=== PATIENT | female | born 1995 | race Caucasian/White ===

== ENCOUNTER 2023-08-09 20:23 | Emergency (ER) | payer BC, SELFPAY ==
[2023-08-09 20:26] VITALS: BP 106/64
[2023-08-09 20:41] LABS: % Basophils 0.9 % (0-2); % Eosinophils 0.7 % (0-6); % Immature Granulocytes 0.6 % (0-0.5); % Lymphocytes 57.6 % (20.5-51.1); % Monocytes 5.5 % (1.7-9.3); % Neutrophils 34.7 % (42.2-75.2); Absolute Basophils 0.1 10^3/uL (0-0.2); Absolute Eosinophils 0.1 10^3/uL (0-0.7); Absolute Immature Granulocytes 0.1 10^3/uL (0-0.05); Absolute Lymphocytes 5.1 10^3/uL (1.2-3.4); Absolute Monocytes 0.5 10^3/uL (0.1-0.6); Absolute Neutrophils 3.1 10^3/uL (1.4-6.5); Hematocrit 35.3 % (37.0-47.0); Hemoglobin 12.5 g/dL (12.0-16.0); Mean Corp Hgb Conc. 35.4 g/dL (33.0-37.0); Mean Corpuscular Hgb 31.8 pg (27.0-31.0); Mean Corpuscular Volume 89.8 fL (81.0-99.0); Nucleated Red Blood Cells % 0 %; Platelet Count 172 10^3/uL (130-400); Red Blood Cell Count 3.93 10^6/uL (4.20-5.40); Red Cell Dist. Width 12.6 % (11.5-14.5); White Blood Cell Count 8.8 10^3/uL (4.8-10.8)
[2023-08-09 20:51] LABS: HCG, Serum Qualitative Screen Negative
[2023-08-09 21:12] LABS: ALT (SGPT) 335 U/L (0-35); AST (SGOT) 247 U/L (14-36); Albumin 3.5 g/dl (3.5-5.0); Alkaline Phosphatase 276 U/L (38-126); Blood Urea Nitrogen 7 mg/dl (7-17); Calcium 8.5 mg/dl (8.4-10.2); Carbon Dioxide 27 mmol/L (22-30); Chloride 100 mmol/L (98-107); Glucose 133 mg/dl (70-99); Potassium 3.7 mmol/L (3.5-5.1); Sodium 133 mmol/L (135-145); Total Bilirubin 1.5 mg/dl (0.2-1.3); Total Protein 6.7 g/dl (6.3-8.2); eGFR > 60.00
[2023-08-09 21:19] LABS: Lipase 158 U/L (23-300)
[2023-08-09 23:40] VITALS: BMI 33.3
--- NOTE | 2023-08-10 | ED.GENMED ---
History of Present Illness
General
Chief Complaint: Abdominal Pain
Source: patient
Exam Limitations: none
Time Seen by Provider: 08/09/23 23:11
Travel History
Have you had any contact with someone who has COVID-19?: No
Do you have any symptoms of coronavirus? Fever > 100 degrees, chills, cough, shortness of breath, sore throat, loss of taste or smell, muscle aches, or headache?: No
History of Present Illness
History of Present Illness:
this is a 27yo female who presents with nausea, and fevers. also has had some vomiting. sx's started about 1.5 weeks ago. she did have a little bit of a sore throat but its gone after ibuprofen. no diarrhea. no abdominal pain. No chest pain. No
cough. The patient does mention that her boyfriend recently came to the from [facility]. She states he is not sick. She is vaccinated. She states her boyfriend is not vaccinated against 'anything'. No rash, no neck pain, no neck stiffness
Past History
Past History
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
ED Past Surgical History: None
Social History
Tobacco: Former smoker
Alcohol: Occasional
Personal: Single
Living: with family
Employment: Employed
Family History
Family History: Other (Father and Brother with Factor V Leiden. Pt tested as child and neg. Dad had heart transplant due to cardiomyopathy. Brother has cardiomyopathy. Per mom, Patient has EF of 50%)
Phy Exam
Physical Exam
Physical Exam:
CONSTITUTIONAL Patient alert and oriented to person, place and time. Well-appearing. Vital signs reviewed.
HEAD atraumatic, normocephalic.
EYES eyelids normal to inspection, Pupils equally round and reactive to light, Extraocular muscles intact, Conjunctiva normal, Sclera normal.
ENT oropharynx normal, no exudates
NECK normal range of motion, Trachea midline, no jugular venous distention.
RESPIRATORY CHEST No respiratory distress noted, Chest expansion equal, Bilateral breath sounds clear.
CARDIOVASCULAR regular rate and rhythm, Heart sounds normal.
ABDOMEN abdomen nontender, Bowel sounds normal. No distention.
BACK normal inspection, no obvious deformities
UPPER EXTREMITY range of motion normal, Motor strength normal, no cyanosis, no edema.
LOWER EXTREMITY range of motion normal, Motor strength normal, no cyanosis, no edema.
NEURO Speech normal, No focal motor deficits, [place] coma scale 15, Memory normal, Cranial Nerves intact to screening exam.
SKIN skin warm, dry, and normal in color.
PSYCHIATRIC patient oriented to person place and time, Normal affect.
Course
Orders/Labs/Results
Orders:
Orders
08/09/23 20:30
Test Result ONCE
08/09/23 20:34
CMP [Comprehensive Metabolic Panel] Urgent
Complete Blood Count/With Diff Urgent
HCG, Serum Qualitative Screen Urgent
Lipase Urgent
Monotest Urgent
Comment: ADD ON
08/09/23 23:11
Add On- LAB Stat
Tests Added?: mono
08/09/23 23:38
Urinalysis Urgent
Date Specimen was Collected: 08/09/23
Time Specimen was Collected: 20:30
Influenza A+B Rapid Molecular Stat
MERCED Source: Nasal Swab
Specimen Description:
08/10/23 00:00
US Abdomen Complete/Upper Urgent
Reason For Exam: fever, abnormal LFT's
08/10/23 00:03
0.9% Sodium Chloride 1000 ml [Nss] 1,000 ml IV BOLUS
Abnormal Lab Results
08/09/23 08/09/23
20:34 23:38
RBC 3.93 L 10^6/uL
(4.20-5.40)
Hct 35.3 L %
(37.0-47.0)
MCH 31.8 H pg
(27.0-31.0)
Abs Immat Gran (auto) 0.1 H 10^3/uL
(0-0.05)
Absolute Lymphs (auto) 5.1 H 10^3/uL
(1.2-3.4)
Immature Gran % 0.6 H %
(0-0.5)
Neutrophils % 34.7 L %
(42.2-75.2)
Lymphocytes % 57.6 H %
(20.5-51.1)
Sodium 133 L mmol/L
(135-145)
Glucose 133 H mg/dl
(70-99)
Total Bilirubin 1.5 H mg/dl
(0.2-1.3)
AST 247 H U/L
(14-36)
ALT 335 H U/L
(0-35)
Alkaline Phosphatase 276 H U/L
(38-126)
Urine Ketones Trace A
(Negative)
Urine Urobilinogen 3+ A
(Neg - 1+)
Ur Leukocyte Esterase Trace A
(Negative)
Monoscreen Positive A
(Negative)
08/09/23 20:34
08/09/23 20:34
Vital Signs
Initial and Last Documented VS:
Initial Vital Signs
Temp Pulse Resp BP Pulse Ox
99.3 F 72 22 106/64 94
08/09/23 20:26 08/09/23 20:26 08/09/23 20:26 08/09/23 20:26 08/09/23 20:26
Last Documented Vital Signs
Temp Pulse Resp BP Pulse Ox
99.3 F 87 18 113/87 96
08/09/23 20:26 08/10/23 00:06 08/10/23 00:06 08/10/23 00:06 08/10/23 00:06
MDM/Problems Addressed
MDM/Problems Addressed:
Abnormal LFTs, mononucleosis
*Pulse Oximetry
Patient hypoxic: no
*Critical Care Note
Total Time (30-74mins, 75-104mins- exclusive of procedures): Not Applicable
Data Reviewed
Source: patient
Further Testing Considered But Not Given:
Considered ultrasound but given abnormal mono positive, suspect LFT bump related. Her abdomen is nontender.
Patient Management
Escalation/DeEscalation of care consider admission/obs:
Patient actually feels well. Recommended fever control with NSAIDs and increase fluid intake. Outpatient follow-up recommended. Bump in LFTs related to mono
ED Attending Note
-
Portions of this chart may have been created with voice recognition software.� Occasional wrong word or��sound alike� substitutions may have occurred due to the inherent limitations of voice recognition software.
Discharge Plan
Departure
Patient Disposition: Home (Routine Discharge)
Date of Disposition: 08/10/23
Time of Disposition: 00:52
Patient with high blood pressure during this ER visit?: No
Discharge Problem:
Mononucleosis, Abnormal LFTs
Instructions: Mononucleosis
Prescriptions:
New
ondansetron 4 mg tablet,disintegrating
4 mg PO TIDPRN PRN (Reason: nausea/vomiting) Qty: 15 0RF
No Action
hylilzmhojxj-wfdjxrbjq-qfieovb [Promethazine VC-Codeine] 118 ML syrup
5 ml PO Q6 PRN (Reason: Cough) Qty: 120 0RF
methylprednisolone 4 MG tablet
4 mg PO TAPER Qty: 1 0RF
Rx Instructions:
Six 4mg tabs Day 1, decrease by 1 tab daily
Referrals:
Rubia Correia PA [Family Provider] -
Activity Restrictions/Additional Instructions:
Please drink plenty fluids. Use ibuprofen as needed for fever control. Please see your doctor in the next 3 to 5 days for follow-up and reevaluation. Return immediately for yellowing of the skin, increased weakness, intractable vomiting or any
other concerns.
Interventions
Interventions:
*Risk Screen - Suicide Last Done: 08/09/23 20:26
*General Assessment Last Done: 08/09/23 23:40
*Neglect/Abuse Screening Last Done: 08/09/23 20:26
ED- Fall Risk Assessment Last Done: 08/09/23 23:54
*ED COVID-19 Vaccine History Last Done: 08/09/23 23:40
FL-Icxujp-Jzhrkjqxjb Assessment Last Done: 08/09/23 23:54
ED-Female Genitourinary Assessment Last Done: 08/09/23 23:54
[2023-08-10 00:06] VITALS: BP 113/87
[2023-08-10] MEDS: NSS 1000 IV (00:07)
[2023-08-10 00:11] LABS: Urine Albumin Trace (Neg - Trace); Urine Bilirubin Negative (Negative); Urine Character Clear (Clear); Urine Color Amber; Urine Glucose Negative (Negative); Urine Ketone Trace (Negative); Urine Leukocyte Trace (Negative); Urine Nitrite Negative (Negative); Urine Occult Blood Negative (Negative); Urine Urobilinogen 3+ (Neg - 1+)
[2023-08-10 00:14] LABS: Monotest Positive (Negative)
[2023-08-10 00:59] LABS: Urine Hyaline Cast 0-2 /LPF (0-2); Urine Mucus Moderate; Urine Squamous Cell >30 /LPF (Few)
[2023-08-10 01:01] LABS: Urine Bacteria Moderate (Negative); Urine Red Blood Cell 0-2 /HPF (0-2)
[2023-08-10 01:02] VITALS: BP 121/70
== END 2023-08-10 01:04 | disposition home or self-care (01) ==
LOC: EMR 20:23
PROVIDERS: Emergency Medicine; EMERGENCY PHYSICIAN Emergency Medicine; FAMILY PHYSICIAN Physician Assistant Medical
DX: B27.90 Infectious mononucleosis, unspecified without complication (principal); Z87.891 Personal history of nicotine dependence; R79.89 Other specified abnormal findings of blood chemistry
CPT/HCPCS: 99283; 80053; 81003; 81015; 83690; 84703; 85025; 86308; 87502

== ENCOUNTER 2023-08-11 15:47 | Emergency (ER) | payer BC, SELFPAY ==
[2023-08-11 15:53] VITALS: BP 123/83
[2023-08-11 16:20] LABS: % Basophils 1.2 % (0-2); % Eosinophils 0.5 % (0-6); % Immature Granulocytes 0.3 % (0-0.5); % Lymphocytes 58.2 % (20.5-51.1); % Monocytes 3.5 % (1.7-9.3); % Neutrophils 36.3 % (42.2-75.2); Absolute Basophils 0.1 10^3/uL (0-0.2); Absolute Eosinophils 0.1 10^3/uL (0-0.7); Absolute Lymphocytes 5.7 10^3/uL (1.2-3.4); Absolute Monocytes 0.3 10^3/uL (0.1-0.6); Absolute Neutrophils 3.5 10^3/uL (1.4-6.5); Hematocrit 42.1 % (37.0-47.0); Hemoglobin 14.3 g/dL (12.0-16.0); Mean Corpuscular Hgb 31.5 pg (27.0-31.0); Mean Corpuscular Volume 92.7 fL (81.0-99.0); Mean Platelet Volume 10.6 fL (7.4-10.4); Nucleated Red Blood Cells % 0 %; Platelet Count 186 10^3/uL (130-400); Red Blood Cell Count 4.54 10^6/uL (4.20-5.40); Red Cell Dist. Width 12.7 % (11.5-14.5); White Blood Cell Count 9.8 10^3/uL (4.8-10.8)
[2023-08-11 16:27] LABS: HCG, Serum Qualitative Screen Negative
[2023-08-11 16:32] LABS: ALT (SGPT) 336 U/L (0-35); AST (SGOT) 252 U/L (14-36); Albumin 3.3 g/dl (3.5-5.0); Alkaline Phosphatase 311 U/L (38-126); Blood Urea Nitrogen 5 mg/dl (7-17); Calcium 8.2 mg/dl (8.4-10.2); Carbon Dioxide 29 mmol/L (22-30); Chloride 103 mmol/L (98-107); Glucose 106 mg/dl (70-99); Potassium 3.7 mmol/L (3.5-5.1); Sodium 134 mmol/L (135-145); Total Bilirubin 1.4 mg/dl (0.2-1.3); Total Protein 6.7 g/dl (6.3-8.2); eGFR > 60.00
[2023-08-11 18:18] VITALS: BP 100/68; BP 102/66; BP 102/67; PULSE 115; PULSE 84; PULSE 87
--- NOTE | 2023-08-11 18:20 | ED.GENMED ---
History of Present Illness
General
Chief Complaint: Head Injury
Source: patient
Time Seen by Provider: 08/11/23 17:42
Nursing documentation reviewed up to this point in time: agreed with
Travel History
Have you had any contact with someone who has COVID-19?: No
Do you have any symptoms of coronavirus? Fever > 100 degrees, chills, cough, shortness of breath, sore throat, loss of taste or smell, muscle aches, or headache?: No
History of Present Illness
History of Present Illness:
27-year-old female who is here 2 days ago diagnosed with mononucleosis states she was in the shower today at 3 PM, felt faint, sat down, felt better, stood up and had to sit down again and closed her eyes and then fell over and hit the back of her
head. The bang 'shocked me into alertness,' no significant LOC.
Past History
Past History
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
ED Past Surgical History: None
Social History
Tobacco: Former smoker
Alcohol: Occasional
Personal: Single
Living: with family
Employment: Employed
Family History
Family History: Other (Father and Brother with Factor V Leiden. Pt tested as child and neg. Dad had heart transplant due to cardiomyopathy. Brother has cardiomyopathy. Per mom, Patient has EF of 50%)
Review of Systems
Review of Systems
Allergies reviewed?: Yes
All Other Systems: ROS reviewed and negative except as documented in HPI and ROS
Constitutional: Reports fever (Diagonal feverish last night, did not take her temperature.) and fatigue
EENT: Denies sore throat
Respiratory: Denies trouble breathing
Cardiac: Reports syncope (Near syncope for few seconds 3 PM today in shower); Denies chest pain
ABD/GI: Denies abdominal pain, nausea or vomiting
: Denies dysuria or difficulty voiding
Musculoskeletal: Reports no symptoms
Skin: Reports no symptoms
Neurological: Reports no symptoms
Phy Exam
Physical Exam
Physical Exam:
GENERAL: No acute distress. A&Ox3.
CONSTITUTIONAL: Afebrile.
EYES: Clear, conjunctivae normal
ENMT: moist mucus membranes, Pharynx nl
RESPIRATORY: Regular respirations, nonlabored, lungs clear.
CARDIOVASCULAR: Regular rate and rhythm, no murmurs, no rubs.
GI: Soft, nontender, normal BS
MUSCULOSKELETAL: Moves with ease. Well perfused.
SKIN: Warm, dry, pink
PSYCH: Normal mood and affect. Well kept, interactive and appropriate
NEUROLOGIC: Awake, alert and oriented. No focal neurological deficits
Course
Orders/Labs/Results
Orders:
Orders
08/11/23 15:56
EKG [Electrocardiogram (*1)] Urgent
Reason for Study: Syncope
EKG- Treatment ONCE
Test Result ONCE
08/11/23 15:[address] [CT Head W/o Iv Contrast] Urgent
Comment:
Reason For Exam: fainted in shower, hit back of head, no thinners
08/11/23 16:10
CBC/With Diff [Complete Blood Count/With Diff] Urgent
CMP [Comprehensive Metabolic Panel] Urgent
HCG, Serum Qualitative Screen Urgent
Abnormal Lab Results
08/11/23
16:10
MCH 31.5 H pg
(27.0-31.0)
MPV 10.6 H fL
(7.4-10.4)
Absolute Lymphs (auto) 5.7 H 10^3/uL
(1.2-3.4)
Neutrophils % 36.3 L %
(42.2-75.2)
Lymphocytes % 58.2 H %
(20.5-51.1)
Sodium 134 L mmol/L
(135-145)
BUN 5 L mg/dl
(7-17)
Glucose 106 H mg/dl
(70-99)
Calcium 8.2 L mg/dl
(8.4-10.2)
Total Bilirubin 1.4 H mg/dl
(0.2-1.3)
AST 252 H U/L
(14-36)
ALT 336 H U/L
(0-35)
Alkaline Phosphatase 311 H U/L
(38-126)
Albumin 3.3 L g/dl
(3.5-5.0)
08/11/23 16:10
08/11/23 16:10
Vital Signs
Initial and Last Documented VS:
Initial Vital Signs
Temp Pulse Resp BP Pulse Ox
98.5 F 102 22 123/83 96
08/11/23 15:53 08/11/23 15:53 08/11/23 15:53 08/11/23 15:53 08/11/23 15:53
Last Documented Vital Signs
Temp Pulse Resp BP Pulse Ox
98.5 F 102 22 123/83 96
08/11/23 15:53 08/11/23 15:53 08/11/23 15:53 08/11/23 15:53 08/11/23 15:53
MDM/Problems Addressed
Differential Diagnosis Includes:
Vasovagal episode, syncopal episode due to viral illness, dehydration
MDM/Problems Addressed:
27-year-old female who is here 2 days ago diagnosed with mononucleosis states she was in the shower today at 3 PM, felt faint, sat down, felt better, stood up and had to sit down again and closed her eyes and then fell over and hit the back of her
head. The bang 'shocked me into alertness,' no significant LOC.
Afebrile, NAD
08/11/2023 1823 PM
CBC with no clinically significant abnormality
CMP: Elevated liver enzymes consistent with mononucleosis
hCG negative
Head CT negative
EKG NSR
Orthostatics negative
Stable for discharge
*Critical Care Note
Total Time (30-74mins, 75-104mins- exclusive of procedures): Not Applicable
ED Attending Note
-
Portions of this chart may have been created with voice recognition software.� Occasional wrong word or��sound alike� substitutions may have occurred due to the inherent limitations of voice recognition software.
Discharge Plan
Departure
Patient Disposition: Home (Routine Discharge)
Date of Disposition: 08/11/23
Time of Disposition: 18:15
Patient with high blood pressure during this ER visit?: No
Condition: Good
Discharge Problem:
Mononucleosis, Syncope
Prescriptions:
No Action
cpvlrhpgodpu-ikzwazzfn-hbeztrv [Promethazine VC-Codeine] 118 ML syrup
5 ml PO Q6 PRN (Reason: Cough) Qty: 120 0RF
methylprednisolone 4 MG tablet
4 mg PO TAPER Qty: 1 0RF
Rx Instructions:
Six 4mg tabs Day 1, decrease by 1 tab daily
ondansetron 4 mg tablet,disintegrating
4 mg PO TIDPRN PRN (Reason: nausea/vomiting) Qty: 15 0RF
Referrals:
Rubia Correia PA [Family Provider] -
Stand Alone Forms: Return to Work
Activity Restrictions/Additional Instructions:
As we discussed, your blood work shows elevated liver enzymes, this is frequently seen with mononucleosis.
Be sure to eat and drink plenty of fluids, especially before taking a hot shower.
Rest, no work until 08/15
Interventions
Interventions:
*Risk Screen - Suicide Last Done: 08/11/23 15:53
*General Assessment Last Done: 08/11/23 15:53
*Neglect/Abuse Screening Last Done: 08/11/23 15:53
*Nursing Disposition Last Done: 08/11/23 18:48
ED- Cardiac Assessment Last Done: 08/11/23 17:40
ED- Neurological Assessment Last Done: 08/11/23 17:40
ED-Skin Assessment Last Done: 08/11/23 17:40
Discharge Date and Time
Discharge Date/Time: 08/11/23 18:51
== END 2023-08-11 18:51 | disposition home or self-care (01) ==
LOC: EMR 15:47
PROVIDERS: EMERGENCY PHYSICIAN Emergency Medicine; FAMILY PHYSICIAN Physician Assistant Medical
DX: B27.90 Infectious mononucleosis, unspecified without complication (principal); R55 Syncope and collapse
CPT/HCPCS: 99285; 70450; 80053; 84703; 85025; 93005

== ENCOUNTER → 2023-11-17 09:15 | Outpatient (REF) | payer BC, SELFPAY ==
[2023-11-17 10:13] LABS: % Eosinophils 6.5 % (0-6); % Immature Granulocytes 0.3 % (0-0.5); % Monocytes 5.5 % (1.7-9.3); % Neutrophils 51.7 % (42.2-75.2); Absolute Basophils 0.1 10^3/uL (0-0.2); Absolute Eosinophils 0.5 10^3/uL (0-0.7); Absolute Lymphocytes 2.4 10^3/uL (1.2-3.4); Absolute Monocytes 0.4 10^3/uL (0.1-0.6); Absolute Neutrophils 3.6 10^3/uL (1.4-6.5); Hematocrit 40.9 % (37.0-47.0); Hemoglobin 14.7 g/dL (12.0-16.0); Mean Corp Hgb Conc. 35.9 g/dL (33.0-37.0); Mean Corpuscular Hgb 31.2 pg (27.0-31.0); Mean Corpuscular Volume 86.8 fL (81.0-99.0); Mean Platelet Volume 9.6 fL (7.4-10.4); Nucleated Red Blood Cells % 0 %; Platelet Count 276 10^3/uL (130-400); Red Blood Cell Count 4.71 10^6/uL (4.20-5.40); Red Cell Dist. Width 11.9 % (11.5-14.5)
[2023-11-17 11:12] LABS: ALT (SGPT) 27 U/L (0-35); AST (SGOT) 27 U/L (14-36); Albumin 4.7 g/dl (3.5-5.0); Alkaline Phosphatase 71 U/L (38-126); Blood Urea Nitrogen 11 mg/dl (7-17); Calcium 9.7 mg/dl (8.4-10.2); Carbon Dioxide 25 mmol/L (22-30); Chloride 105 mmol/L (98-107); Glucose 100 mg/dl (70-99); HDL Cholesterol 42 mg/dl; LDL Cholesterol, Calculated 102 mg/dl; Lipase 155 U/L (23-300); Potassium 4.3 mmol/L (3.5-5.1); Sodium 140 mmol/L (135-145); Total Bilirubin 0.8 mg/dl (0.2-1.3); Total Cholesterol 161 mg/dl (50-199); Total Protein 7.5 g/dl (6.3-8.2); Triglyceride 87 mg/dl (10-149); Very Low Density Lipoprotein 17 mg/dl (0-30); eGFR > 60.00
[2023-11-17 11:40] LABS: TSH Reflex To Free T4 0.64 uIU/ml (0.47-4.68)
[2023-11-17 13:23] LABS: Glycohemoglobin (HgbA1c) 5.4 % (4.0-5.6)
[2023-11-19 16:29] LABS: Insulin, Random 12 uIU/mL
== END ==
LOC: REG 09:15
PROVIDERS: ATTENDING PHYSICIAN Physician Assistant Medical
DX: E28.2 Polycystic ovarian syndrome (principal); E66.09 Other obesity due to excess calories
CPT/HCPCS: 36415; 80053; 80061; 83036; 83525; 83690; 84443; 85025